=== PATIENT | male | born 1980 | race Caucasian/White ===

== ENCOUNTER 2024-07-02 15:32 | Outpatient (CLI) | payer OTHER, SELFPAY ==
--- NOTE | ~2024-07-02 | XR_ITS ---
Supine and upright views of the abdomen Clinical history: Abdominal pain Findings: Bowel gas pattern is nonspecific. No evidence for obstruction or free air. No abnormal mass lesion or calcification is seen. Osseous structures are intact. Impression: No significant abnormality is seen. Reviewed, dictated and finalized at [facility]. Impression: No significant abnormality is seen.
== END 2024-07-02 15:33 | disposition home or self-care (01) ==
LOC: ANHBWCLAB 15:43 → ANHBWCIMG 15:44
PROVIDERS: PCP Nurse Practitioner Adult Health; Visit Provider Nurse Practitioner Adult Health
DX: R10.9 Unspecified abdominal pain (principal)
CPT/HCPCS: 74018

== ENCOUNTER 2024-08-26 12:06 | Emergency (ER) | payer OTHER, SELFPAY ==
--- NOTE | ~2024-08-26 | XR_ITS ---
Clinical Indication: Influenza, cough PA and lateral views of the chest: Comparison: None Findings: There is right middle lobe airspace disease. Left lung is clear. Cardiomediastinal silhouet te is within normal limits. Bones and soft tissues are unremarkable. Impression: Right middle lobe pneumonia versus possibly atelectasis. Reviewed, dictated and finalized at [facility]. ROLLER Impression: Right middle lobe pneumonia versus possibly atelectasis.
[2024-08-26 12:15] VITALS: BP 141/85; PULSE 89; RESP 18; TEMP 36.8; O2SAT 98
--- NOTE | 2024-08-26 12:36 | ED.GENADULT ---
HPI - General Adult General Chief complaint: Chest Pain Stated complaint: Rib Pain Time Seen by Provider: 08/26/24 12:17 Source: patient, RN notes reviewed and old records reviewed Mode of arrival: ambulatory Limitations: no limitations History of Present Illness HPI narrative: Patient presents today complaining of a productive cough, left-sided chest wall pain that worsens with deep breath and movement. Patient was seen last week and diagnosed with influenza a and placed on a Medrol Dosepak and an albuterol inhaler. He has finished the Medrol. States his other symptoms have since resolved but the cough persists with some mild shortness of breath. The chest wall pain started this morning. Currently rates his pain 3/10 and has been taking Tylenol, DayQuil, NyQuil with some mild relief. Related Data Allergies Allergy/AdvReac Type Severity Reaction Status Date / Time No Known Allergies Allergy Unverified 08/26/24 12:14 Review of Systems Review of Systems: CONSTITUTIONAL: Denies body aches, fever, chills, or sweats. EYES: Denies visual changes, redness, or discharge. ENT: Denies rhinorrhea, congestion, sore throat, or otalgia. CARDIOVASCULAR: Denies chest pain, palpitations, or edema. RESPIRATORY: + cough, shortness of breath, left chest wall pain GASTROINTESTINAL: Denies abdominal pain, nausea, vomiting, or diarrhea. GENITOURINARY: Denies dysuria or hematuria. SKIN: Denies rash, itching, or wounds. MUSCULOSKELETAL: Denies back pain, joint pain, or myalgia. NEUROLOGIC: Denies headache, numbness, tingling, or weakness. PSYCH: Denies depression or anxiety. [facility] Family History Family History Mother Depression Grandparent Breast cancer Heart disease Cerebrovascular accident Grandparent Heart disease Social History Social History Social History: Quit in 2011 for 6 months Smoking packs per day: 1 Smoking cigarettes per day: 20.0 Years smoked: 20 Smoking pack-years: 20.00 Smoking status: Current every day smoker Alcohol intake: current Alcohol use details: beer whiskey 0-6 a week Substance use type: does not use Do You Feel Safe in your Home?: Yes Lack of Transportation: No Lack of Food: Never True Current Housing: I Have Housing Concerned About Future Housing: No Difficulty Paying Gas/Electric Bills: No Difficulty Paying for Meds: No Currently Unemployed: No Education: Associate Degree Living arrangements: with family Additional occupation/education comments: [employer] Gender identity (if verbalized by the patient): Male Agree to blood products: Yes Comments At time of signature, I have reviewed and agree with nursing past medical, surgical, social and family history unless otherwise noted. Please see nursing chart for further information. There is no relevant family history pertinent to the presenting complaint Exam Narrative: GENERAL: Mildly ill-appearing, well-nourished, and in no acute distress. HEAD: Normocephalic, atraumatic. EYES: EOMI. No redness or drainage. Conjunctivae normal. ENT: Mucous membranes pink and moist. Nares clear. No rhinorrhea. TMs normal bilaterally. Throat normal. Uvula midline. NECK: Normal AROM. Supple. No lymphadenopathy. CHEST: No respiratory distress. Point tenderness to the left lateral rib area. Mildly diminished in the right mid to lower lung zone, otherwise clear. HEART: Regular rate and rhythm. No murmur appreciated. SKIN: Warm, dry, no rash. Capillary refill normal. Normal skin turgor. NEURO: No focal deficits. Alert and oriented x3. Gait steady. PSYCH: Normal affect. No signs of depression or anxiety. Course Course Level of Care: Express Care Visit Vital Signs Vital signs: Vital Signs Temperature 98.3 F 08/26/24 12:15 Pulse Rate 89 08/26/24 12:15 Respiratory Rate 18 08/26/24 12:15 Blood Pressure 141/85 H 08/26/24 12:15 Pulse Oximetry 98 08/26/24 12:15 Oxygen Delivery Room Air 08/26/24 12:15 Temperature 98.3 F 08/26/24 12:15 Pulse Rate 89 08/26/24 12:15 Respiratory Rate 18 08/26/24 12:15 Blood Pressure 141/85 H 08/26/24 12:15 Pulse Oximetry 98 08/26/24 12:15 Oxygen Delivery Room Air 08/26/24 12:15 Reviewed Medical Decision Making MDM Narrative Medical decision making narrative: Patient's x-ray shows right middle lobe pneumonia versus possibly atelectasis. Patient is diminished in this area upon auscultation. Will treat for presumed pneumonia. Left chest wall discomfort is likely due to chest wall strain. Will treat patient with antibiotics for secondary pneumonia after influenza with Augmentin and azithromycin. Anticipatory guidance given. ED precautions given. Differential Diagnosis Differential Diagnosis: Bronchitis, pneumonia, rib fracture, costochondritis, pleurisy, chest wall strain Vital Signs Vital Signs: Vital Signs Temperature 98.3 F 08/26/24 12:15 Pulse Rate 89 08/26/24 12:15 Respiratory Rate 18 08/26/24 12:15 Blood Pressure 141/85 H 08/26/24 12:15 Pulse Oximetry 98 08/26/24 12:15 Oxygen Delivery Room Air 08/26/24 12:15 Temperature 98.3 F 08/26/24 12:15 Pulse Rate 89 08/26/24 12:15 Respiratory Rate 18 08/26/24 12:15 Blood Pressure 141/85 H 08/26/24 12:15 Pulse Oximetry 98 08/26/24 12:15 Oxygen Delivery Room Air 08/26/24 12:15 ABG Data Interpretation: ITS Impressions Chest X-Ray 08/26/24 12:32 Impression: Right middle lobe pneumonia versus possibly atelectasis. Critical Care Time Critical Care Time Critical Care Time: No Discharge Plan Discharge Clinical Impression: Pneumonia Qualifiers: Pneumonia type: due to unspecified organism Laterality: right Lung location: middle lobe of lung Qualified Code(s): J18.9 - Pneumonia, unspecified organism Chest wall muscle strain Qualifiers: Encounter type: initial encounter Qualified Code(s): S29.011A - Strain of muscle and tendon of front wall of thorax, initial encounter Patient Disposition: Home, Self-Care Condition: Stable Instructions: Antibiotic Form, Community Acquired Pneumonia (DC) Additional Instructions: Your x-ray shows pneumonia in the right lung. Please take the antibiotics as prescribed. Continue albuterol if needed. Continue Tylenol or ibuprofen for your discomfort. Follow-up with your PCP in 3 days if symptoms are not improving. Go to the ER immediately if symptoms worsen. Your blood pressure was elevated above 120/80 today at Urgent Care. This puts you above the threshold for follow up. Please schedule a followup visit with your personal physician as soon as possible, for further evaluation and treatment. Even blood pressure exceeding 120/80 may indicate pre-hypertension. Prescriptions: New azithromycin 250 mg tablet 250 mg PO DAILY Qty: 6 0RF Rx Instructions: take 500 mg today (day 1), then 250 mg daily on days 2-5. amoxicillin-pot clavulanate 875-125 mg tablet 1 tablet PO Q12H 5 Days Qty: 10 0RF No Action albuterol sulfate [Ventolin HFA] 90 mcg/actuation HFA aerosol inhaler 2 inh inhalation Q4H PRN (Reason: shortness of breath or wheezing) Qty: 8.5 0RF Follow-up/Referrals: Cassandra Yeh APRN [Primary Care Provider] - Time of Disposition: 12:44
== END 2024-08-26 12:48 | disposition home or self-care (01) ==
PROVIDERS: Emergency Provider Nurse Practitioner; PCP Nurse Practitioner Adult Health
DX: J18.1 Lobar pneumonia, unspecified organism (principal); S29.011A Strain of muscle and tendon of front wall of thorax, initial encounter; X58.XXXA Exposure to other specified factors, initial encounter; F17.210 Nicotine dependence, cigarettes, uncomplicated
CPT/HCPCS: 71046; 99213; G0463

== ENCOUNTER 2024-09-02 15:31 | Outpatient (CLI) | payer OTHER, SELFPAY ==
--- NOTE | ~2024-09-02 | XR_ITS ---
EXAMINATION: XR chest 2V Exam Date/Time: 09/02/2024 15:35 [facility] HISTORY: FU pneumonia Comparison: 08/26/2024. RESULT: Lines, tubes, and devices: None. Lungs and pleura: Clear. Cardiomediastinal silhouette: Stable. Other: No acute osseous or upper abdominal finding. IMPRESSION: No acute cardiopulmonary process. Interval resolution of the previously described right middle lobe o pacities. Reviewed, dictated and finalized at [facility] IMPRESSION: No acute cardiopulmonary process. Interval resolution of the previously describ ed right middle lobe opacities.
== END 2024-09-02 15:32 | disposition home or self-care (01) ==
LOC: ANHBWCIMG 15:32
PROVIDERS: PCP Nurse Practitioner Adult Health; Visit Provider Nurse Practitioner Adult Health
DX: J10.00 Influenza due to other identified influenza virus with unspecified type of pneumonia (principal)
CPT/HCPCS: 71046